=== PATIENT | female | born 1975 | race Caucasian/White ===

== ENCOUNTER → 2016-03-06 | Day surgery (SDC) | payer MEDICARE ==
[~2016-03-06] MED LIST: Acetaminophen TAB* 325 MG PO PRN; Buffered Lidocaine 1% SYR 3ML* 3 ML/SYR SYRINGE INTRADERM ONE; Buffered Lidocaine 1% SYR 3ML* 3 ML/SYR SYRINGE ONE; Bupivacaine 0.5% W/EPI SDV* 30 ML VIAL ONE; DiMENhydriNATE IV* 50 MG/ML VIAL IV PUSH PRN; HYDROcodone/ACETAMIN 5-325 MG* 1 TAB PO PRN; Lidocaine 1% INJ* 10 MG/ML 30 ML SDV ONE; Midazolam* 1 MG/ML 2 ML VIAL (2 MG) ONE; Ondansetron INJ* 2 MG/ML VIAL IV PRN; PROCHLORPERAZINE INJ 5 MG/ML 2 ML VIAL IV PRN; Scopolamine 1.5 mg* PATCH TRANSDERM PRN; Scopolamine PATCH Remove* 1 NOTE MISC PATCH OFF ONE; ceFAZolin 2 GM PREMIX (*) 2 GM/50 ML BAG IVPB ONE; fentaNYL* 50 MCG/ML 2 ML VIAL (100 MCG VIAL) ONE
--- NOTE | 2016-03-06 16:38 | SURGPN ---
Brief Operative Note - Surgery Procedures: OPERATIVE REPORT PRE-OP: Right femoral hernia POST-OP: Same PROCEDURE: Open repair with mesh of right femoral hernia SURGEON: MD Sharmin ANESTHESIA: General with Local--Dr. Malave ASST: none IVF: min EBL: min SPECIMEN: none DRAIN: none WOUND CLASS: One COMPLICATIONS: none TO PACU
[2016-03-06 17:57] VITALS: BP 123/72
--- NOTE | 2016-03-07 12:53 | OP ---
DATE OF SERVICE: 03/06/16 [facility] DATE OF : 71 SURGEON: Solitario Finney MD BEEF RIBBER: None. ANESTHESIOLOGIST: Dr. Malave. ANESTHESIA: General with local. PRE-OP DIAGNOSIS: Right femoral hernia. POST-OP DIAGNOSIS: Right femoral hernia. OPERATIVE PROCEDURE: Open repair with mesh of the right femoral hernia. ESTIMATED BLOOD LOSS: Minimal. SPECIMENS: None. DRAINS: None. WOUND CLASSIFICATION: I. COMPLICATIONS: None. DESCRIPTION OF PROCEDURE: Written informed consent was obtained, the right groin was marked with indelible ink and preoperative antibiotics were administered. The patient was taken to the operating room and placed in the supine position. Sequential compression devices and warming blanket were applied. The right lower groin, upper thigh, and lower abdomen were prepped and draped in usual sterile fashion. The anesthesia was administered. Time-out verification was completed. A palpable 2-cm bulge was just above the right groin crease just lateral to the mons pubis and the 1% lidocaine mixed with 0.25% Marcaine was infiltrated in the right groin crease and about an [id number] incision was made and carried down to the subcutaneous tissue until a fatty protuberant mass was identified. This was dissected down to the inferior portion of the external oblique aponeurosis in the upper thigh and there was some fatty tissue surrounding this. I identified a hernia sac and this was freed up into the neck and was easily reduced into about a 5 mm to 6 mm femoral canal. We next used a piece of polypropylene rolled up into a tube of about 6 mm to 7 mm and about 3 mm to 4 cm of length and this was inserted about easily about 3-1 /2 to 4 cm up into the femoral canal and it plugged this nicely. This was sutured to the reflection of the external oblique aponeurosis in two places with an interrupted 0- Polysorb suture and then also to the musculature medially with a single 0-Polysorb suture. Hemostasis was assured and additional marking was infiltrated. The incision was then closed in layers with 3-0 and 4-0 Polysorb sutures. Steri-Strips and sterile dressings were applied. The patient tolerated the procedure well and was taken to the recovery room in stable condition. [id number]/[facility] #: [id number] [facility]
== END | disposition home or self-care (01) ==
LOC: OR 12:41
PROVIDERS: ATTEND Surgery
DX: K41.90 Unilateral femoral hernia, without obstruction or gangrene, not specified as recurrent (principal)
CPT/HCPCS: C1781; J0690; J2250; J3010

== ENCOUNTER 2017-10-24 14:45 | Emergency (ER) | payer BC ==
--- NOTE | 2017-10-24 17:57 | RAD ---
Indication: Right ankle injury. 3 views of the right ankle demonstrates no fracture. Suggestion of a osteochondral defect is noted in the medial talus. IMPRESSION: No fracture is noted. Question of osteochondral defect in the medial talus.
[2017-10-24] MEDS ORDERED: Ibuprofen TAB* 600 MG PO ONE (18:42)
[2017-10-24] MEDS ORDERED: oxyCODONE TAB* 5 MG TAB PO ONE (19:03)
--- NOTE | 2017-10-24 19:23 | ED ---
Lower Extremity - HPI Summary HPI Summary: Patient complains of right ankle pain after falling through a deck and twisting it during landing. Denies any other pain or injury. Denies loss of sensation or function distally - History of Current Complaint Chief Complaint: EDExtremityLower Stated Complaint: RT ANKLE INJURY Time Seen by Provider: 10/24/17 18:24 Hx Obtained From: Patient Mechanism Of Injury: Twisted Onset of Pain: Immediate Onset/Duration: Hours Severity Initially: Moderate Severity Currently: Moderate Pain Intensity: 8 Pain Scale Used: 0-10 Numeric Timing: Constant Location: Is Discrete @ Character Of Pain: Sharp, Aching Associated Signs And Symptoms: Positive: Negative Aggravating Factor(s): Ambulation, Weight Bearing Able to Bear Weight: No - Allergies/Home Medications Allergies/Adverse Reactions: Allergies Allergy/AdvReac Type Severity Reaction Status Date / Time No Known Allergies Allergy Verified 10/24/17 18:25 Home Medications: Home Medications NK [No Home Medications Reported] 10/24/17 [History Confirmed 10/24/17] PMH/Surg Hx/FS Hx/Imm Hx Endocrine/Hematology History: Denies: Hx Anticoagulant Therapy Cardiovascular History: Denies: Hx Cardiac Arrest History: Denies: Hx Dialysis Neurological History: Denies: Hx CVA - Cancer History Hx Chemotherapy: No Hx Radiation Therapy: No Infectious Disease History: No Infectious Disease History: Denies: Traveled Outside the [place] in Last 30 Days - Social History Alcohol Use: None Substance Use Type: Reports: Marijuana Substance Use Comment - Amount & Last Used: DAILY POT SMOKER Smoking Status (MU): Former Smoker Type: Cigarettes Amount Used/How Often: 1 PACK A WEEK Length of Time of Smoking/Using Tobacco: 5 YEARS Have You Smoked in the Last Year: No Review of Systems Constitutional: Negative Eyes: Negative ENT: Negative Cardiovascular: Negative Respiratory: Negative Gastrointestinal: Negative Genitourinary: Negative Positive: Arthralgia Skin: Negative Neurological: Negative Psychological: Normal All Other Systems Reviewed And Are Negative: Yes Physical Exam - Summary Physical Exam Summary: No swelling, ecchymosis, erythema, deformity, extra warmth noted to right ankle or foot. PMS intact distally. Triage Information Reviewed: Yes Vital Signs On Initial Exam: Initial Vitals Temp Pulse Resp BP Pulse Ox 98.4 F 73 16 149/95 99 10/24/17 14:56 10/24/17 14:56 10/24/17 14:56 10/24/17 14:56 10/24/17 14:56 Vital Signs Reviewed: Yes Appearance: Positive: Well-Appearing Skin: Positive: Warm Head/Face: Positive: Normal Head/Face Inspection Eyes: Positive: Normal Neck: Positive: Supple Respiratory/Lung Sounds: Positive: Clear to Auscultation Cardiovascular: Positive: Normal Abdomen Description: Positive: Nontender Musculoskeletal: Positive: Normal Neurological: Positive: Normal Psychiatric: Positive: Normal AVPU Assessment: Alert - [place] Coma Scale Best Eye Response: 4 - Spontaneous Best Motor Response: 6 - Obeys Commands Best Verbal Response: 5 - Oriented Coma Scale Total: 15 Diagnostics - Vital Signs Vital Signs Temp Pulse Resp BP Pulse Ox 10/24/17 14:56 98.4 F 73 16 149/95 99 - Laboratory Lab Statement: Any lab studies that have been ordered have been reviewed, and results considered in the medical decision making process. - Radiology ankle Xray Interpretation: No Acute Changes Radiology Interpretation Completed By: Radiologist Lower Extremity Course/Dx - Course Course Of Treatment: Patient complains of right ankle pain after falling through a deck and twisting it during landing. Denies any other pain or injury. Denies loss of sensation or function distally. Physical exam:No swelling, ecchymosis, erythema, deformity, extra warmth noted to right ankle or foot. PMS intact distally. X-ray negative for acute bony process. Patient given ankle splint and crutches. Advised rest, ibuprofen, elevation, ice. Follow-up with orthopedics if symptoms do not improve. - Diagnoses Provider Diagnoses: Ankle sprain Discharge - Sign-Out/Discharge Documenting (check all that apply): Patient Departure - Discharge Plan Condition: Stable Disposition: HOME Patient Education Materials: Ankle Sprain (ED) Referrals: No Primary Care Phys,NOPCP [Primary Care Provider] - Tadeo Montalvo MD [Medical Doctor] - Additional Instructions: Ice, ibuprofen, elevation, rest for pain and swelling. If symptoms do not improve in 5 days follow-up with orthopedics Dr. Montalvo for further evaluation. Return to the ED for any new or worsening symptoms - Billing Disposition and Condition Condition: STABLE Disposition: Home
[2017-10-24 19:45] VITALS: BP 137/81
== END 2017-10-24 19:44 | disposition home or self-care (01) ==
LOC: ED 14:45
DX: S93.401A Sprain of unspecified ligament of right ankle, initial encounter (principal); M25.571 Pain in right ankle and joints of right foot; Z87.891 Personal history of nicotine dependence; W19.XXXA Unspecified fall, initial encounter; Y92.9 Unspecified place or not applicable
CPT/HCPCS: 99282; A9270-GY